=== PATIENT | female | born 1955 | race Caucasian/White ===

== ENCOUNTER 2018-08-19 10:37 | Inpatient (IN) | payer BC, SELFPAY ==
[2018-08-19] MEDS: Ondansetron 4 MG/2 ML SDV IVPUSH PRN (11:32)
[2018-08-19] MEDS: Sodium Chloride 0.9% 1,000 ML IV SCH ×2 (11:44→20:06)
[2018-08-19 11:45] LABS: CHLORIDE,CL 106 mEq/L (98-106); SODIUM,NA 143 mEq/L (136-145)
[2018-08-19] MEDS: Enoxaparin 40 MG/0.4 ML Syringe SUBCUT SCH (12:53)
[2018-08-19] MEDS ORDERED: Iopamidol 612 MG/ML 100 ML Bottle IVPUSH ONE (13:37)
--- NOTE | 2018-08-19 17:17 | EDM.PDOC ---
ED HPI GENERAL MEDICAL PROBLEM - General Chief Complaint: General Stated Complaint: nausea, sweating Time Seen by Provider: 08/19/18 11:03 Source of Information: Reports: Patient, Family History Limitations: Reports: No Limitations - History of Present Illness INITIAL COMMENTS - FREE TEXT/NARRATIVE: Adriane is a 62 yo female who presents to the ER ambulatory with concerns of feeling of passing out, nausea, excessive sweating, fatigue and body aches. She states she hasn't been feeling well for the last month. Has been seen on multiple occasions in clinic with similar symptoms. She states today everything got so bad at home she couldn't take it anymore and broke down. She does admit to a lot of stress. 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 She doesn't feel as if things are any worse in regards to her stress. She admits to Ashlyn Guan at the end of April. She admits she has noticed her arms and legs will go numb for short periods of time. She denies any trauma. States she does see a chiropractor for a stiff neck and that has seemed to help. She admits she has recently went off of her psychiatric medications as they had thought this was possibly causing her excessive sweating. She admits the excessive sweating has been ongoing for months. Admits she has been nauseated for over a year and does get some left upper quadrant abdominal pain. Family is present today and stating she can't continue like this and we need to get to the bottom of it. - Related Data Allergies Allergy/AdvReac Type Severity Reaction Status Date / Time nitrofurantoin Allergy Stomach Verified 08/19/18 10:38 [From Macrobid] Ache nitrofurantoin Allergy Stomach Verified 08/19/18 10:38 macrocrystalline Ache [From Macrobid] oxycodone [Oxycodone] Allergy Cannot Verified 08/19/18 10:38 Remember sulfamethoxazole Allergy Diarrhea Verified 08/19/18 10:38 [From Septra] trimethoprim [From Septra] Allergy Diarrhea Verified 08/19/18 10:38 Home Meds: Home Meds . [No Known Home Meds] 08/19/18 [History] Past Medical History Musculoskeletal History: Reports: Back Pain, Chronic - Past Surgical History GI Surgical History: Reports: Colonoscopy Neurological Surgical History: Reports: Other (See Below) Other Neurological Surgeries/Procedures: neuro stimulator Oncologic Surgical History: Reports: Lumpectomy Social & Family History - Family History Family Medical History: Noncontributory - Tobacco Use Smoking Status *Q: Current Some Day Smoker Years of Tobacco use: 40 Packs/Tins Daily: 0 - Caffeine Use Caffeine Use: Reports: Coffee ED ROS GENERAL - Review of Systems Review Of Systems: See Below Constitutional: Reports: Chills, Fatigue, Weight Loss (5lbs this week). Denies : Fever HEENT: Reports: No Symptoms Respiratory: Reports: No Symptoms Cardiovascular: Reports: Lightheadedness, Palpitations. Denies: Chest Pain GI/Abdominal: Reports: Abdominal Pain, Diarrhea, Nausea. Denies: Bloody Stool, Vomiting : Reports: No Symptoms Musculoskeletal: Reports: Neck Pain, Muscle Pain Neurological: Reports: Dizziness, Headache, Numbness, Paresthesia. Denies: Seizure, Syncope Psychiatric: Reports: Anxiety ED EXAM, GENERAL - Physical Exam Exam: See Below Exam Limited By: No Limitations General Appearance: Alert, No Apparent Distress Eye Exam: Bilateral Eye: EOMI, PERRL Ears: Normal External Exam, Normal Canal, Hearing Grossly Normal, Normal TMs Nose: Normal Inspection, No Blood Throat/Mouth: Normal Inspection, Normal Lips, Normal Teeth, Normal Gums, Normal Oropharynx, Normal Voice, No Airway Compromise Head: Atraumatic, Normocephalic Neck: Normal Inspection, Supple, Non-Tender, Full Range of Motion Respiratory/Chest: No Respiratory Distress, Lungs Clear, Normal Breath Sounds, No Accessory Muscle Use, Chest Non-Tender Cardiovascular: Normal Peripheral Pulses, Regular Rate, Rhythm, No Edema, No Murmur GI/Abdominal: Normal Bowel Sounds, Soft, Tender (LUQ). No: Rigid, Rebound, Hepatomegaly, Splenomegaly Extremities: Normal Inspection, Normal Range of Motion, Normal Capillary Refill Neurological: Alert, Oriented, Normal Cognition, No Motor/Sensory Deficits Psychiatric: Normal Affect, Normal Mood Skin Exam: Warm, Dry, Intact, Normal Color, No Rash EKG INTERPRETATION EKG Date: 08/19/18 Rhythm: NSR [place]: Normal Comparison: NA - No Prior EKG Course - Vital Signs Last Recorded V/S: Last Vital Signs Temp 97.9 F 08/19/18 15:57 Pulse 59 L 08/19/18 15:57 Resp 20 08/19/18 15:57 BP 126/62 08/19/18 15:57 Pulse Ox 99 08/19/18 15:57 - Orders/Labs/Meds Orders: Active Orders 24 hr Category Date Time Status Patient Status [ADT] Routine ADT 08/19/18 12:03 Active Oxygen Therapy [RC] .PRN Care 08/19/18 12:03 Active Up ad Yany [RC] .PRN Care 08/19/18 12:03 Active Vital Signs [RC] 0400,0800,1200,1600,2000,0000 Care 08/19/18 12:03 Active Regular Diet [DIET] Diet 08/19/18 Lunch Active Abdomen Pelvis w Cont [CT] Stat Exams 08/19/18 12:03 Taken Head wo Cont [CT] Stat Exams 08/19/18 11:11 Taken Acetaminophen [Tylenol] Med 08/19/18 12:03 Active 650 mg PO Q4H PRN Enoxaparin [Lovenox] Med 08/19/18 12:00 Active 40 mg SUBCUT Q24H Ondansetron [Zofran] Med 08/19/18 11:13 Active 4 mg IVPUSH Q6H PRN Sodium Chloride 0.9% [Normal Saline] 1,000 ml Med 08/19/18 11:15 Active IV ASDIRECTED Resuscitation Status Routine Resus Stat 08/19/18 11:55 Ordered Medication Orders Acetaminophen (Tylenol) 650 mg PO Q4H PRN PRN Reason: Pain (Mild 1-3)/fever Enoxaparin Sodium (Lovenox) 40 mg SUBCUT Q24H [facility] Last Admin: 08/19/18 12:53 Dose: Not Given Sodium Chloride (Normal Saline) 1,000 mls @ 125 mls/hr IV ASDIRECTED [facility] Last Infusion: 08/19/18 11:52 Dose: 125 mls/hr Admin: 08/19/18 11:44 Dose: 200 mls/hr Ondansetron HCl (Zofran) 4 mg IVPUSH Q6H PRN PRN Reason: Nausea Last Admin: 08/19/18 11:32 Dose: 4 mg Labs: Laboratory Tests 08/19/18 08/19/18 08/19/18 Range/Units 11:11 11:11 11:22 WBC 6.7 (5.0-10.0) 10^3/uL RBC 4.84 (4.00-5.50) 10^6/uL Hgb 13.9 (12.0-16.0) g/dL Hct 41.7 (37.0-47.0) % MCV 86.2 (82.0-94.0) fL MCH 28.7 (27.0-32.0) pg MCHC 33.3 (33.0-38.0) g/dL RDW Coeff of Ruth 12.9 (11.0-15.0) % Plt Count 236 (150-400) 10^3/uL Neut % (Auto) 58.2 (35-85) % Lymph % (Auto) 30.4 (10-55) % [place] % (Auto) 9.1 (0-16) % Eos % (Auto) 1.9 (0-5) % Baso % (Auto) 0.4 (0-3) % Neut # (Auto) 3.90 (1.80-7.00) 10^3/uL Lymph # (Auto) 2.04 (1.00-4.80) 10^3/uL [place] # (Auto) 0.61 (0.00-0.80) 10^3/uL Eos # (Auto) 0.13 (0.00-0.45) 10^3/uL Baso # (Auto) 0.03 10^3/uL ESR 19 (0-20) mm/hr Sodium (136-145) mEq/L Potassium (3.5-5.0) mEq/L Chloride (98-106) mEq/L Carbon Dioxide (21-32) mmol/L BUN (7-18) mg/dL Creatinine (0.6-1.0) mg/dL Est Cr Clr Drug Dosing mL/min Estimated GFR (MDRD) (>=60) mL/min Glucose (75-99) mg/dL Calcium (8.4-10.1) mg/dL Magnesium (1.8-2.4) mg/dL Total Bilirubin (0.0-1.0) mg/dL AST (15-37) U/L ALT (12-78) U/L Alkaline Phosphatase (46-116) U/L C-Reactive Protein (0.2-0.8) mg/dL Total Protein (6.4-8.2) g/dL Albumin (3.4-5.0) g/dL TSH, Ultra Sensitive (0.36-5.60) uIU/mL Urine Color Yellow (YELLOW) Urine Appearance Clear (CLEAR) Urine pH 6.5 (4.5-8.0) Ur Specific [place] 1.010 (1.003-1.020) Urine Protein Negative (NEGATIVE) mg/dL Urine Glucose (UA) Negative (NEGATIVE) mg/dL Urine Ketones Negative (NEGATIVE) mg/dL Urine Occult Blood Trace-intact H (NEGATIVE) Urine Nitrite Negative (NEGATIVE) Urine Bilirubin Negative (NEGATIVE) Urine Urobilinogen 0.2 (0.2-1.0) EU/dL Ur Leukocyte Esterase Trace H (NEGATIVE) Urine RBC Not seen (0-5) /HPF Urine WBC Not seen (0-5) /HPF Ur Squamous Epith Cells Occasional H (NOT SEEN) /HPF Urine Opiates Screen Negative (NEGATIVE) Ur Oxycodone Screen Negative (NEGATIVE) Urine Methadone Screen Negative (NEGATIVE) Ur Barbiturates Screen Negative (NEGATIVE) U Tricyclic Antidepress Negative (NEGATIVE) Ur Phencyclidine Scrn Negative (NEGATIVE) Ur Amphetamine Screen Negative (NEGATIVE) U Methamphetamines Scrn Negative (NEGATIVE) Urine MDMA Screen Negative (NEGATIVE) U Benzodiazepines Scrn Negative (NEGATIVE) Urine Cocaine Screen Negative (NEGATIVE) U Marijuana (THC) Screen Negative (NEGATIVE) 08/19/18 Range/Units 11:22 WBC (5.0-10.0) 10^3/uL RBC (4.00-5.50) 10^6/uL Hgb (12.0-16.0) g/dL Hct (37.0-47.0) % MCV (82.0-94.0) fL MCH (27.0-32.0) pg MCHC (33.0-38.0) g/dL RDW Coeff of Ruth (11.0-15.0) % Plt Count (150-400) 10^3/uL Neut % (Auto) (35-85) % Lymph % (Auto) (10-55) % [place] % (Auto) (0-16) % Eos % (Auto) (0-5) % Baso % (Auto) (0-3) % Neut # (Auto) (1.80-7.00) 10^3/uL Lymph # (Auto) (1.00-4.80) 10^3/uL [place] # (Auto) (0.00-0.80) 10^3/uL Eos # (Auto) (0.00-0.45) 10^3/uL Baso # (Auto) 10^3/uL ESR (0-20) mm/hr Sodium 143 (136-145) mEq/L Potassium 4.1 (3.5-5.0) mEq/L Chloride 106 (98-106) mEq/L Carbon Dioxide 30 (21-32) mmol/L BUN 11 (7-18) mg/dL Creatinine 0.7 (0.6-1.0) mg/dL Est Cr Clr Drug Dosing 86.67 mL/min Estimated GFR (MDRD) > 60 (>=60) mL/min Glucose 75 (75-99) mg/dL Calcium 9.4 (8.4-10.1) mg/dL Magnesium 2.0 (1.8-2.4) mg/dL Total Bilirubin 0.4 (0.0-1.0) mg/dL AST 16 (15-37) U/L ALT 27 (12-78) U/L Alkaline Phosphatase 93 (46-116) U/L C-Reactive Protein 0.3 (0.2-0.8) mg/dL Total Protein 7.4 (6.4-8.2) g/dL Albumin 3.8 (3.4-5.0) g/dL TSH, Ultra Sensitive 2.63 (0.36-5.60) uIU/mL Urine Color (YELLOW) Urine Appearance (CLEAR) Urine pH (4.5-8.0) Ur Specific [place] (1.003-1.020) Urine Protein (NEGATIVE) mg/dL Urine Glucose (UA) (NEGATIVE) mg/dL Urine Ketones (NEGATIVE) mg/dL Urine Occult Blood (NEGATIVE) Urine Nitrite (NEGATIVE) Urine Bilirubin (NEGATIVE) Urine Urobilinogen (0.2-1.0) EU/dL Ur Leukocyte Esterase (NEGATIVE) Urine RBC (0-5) /HPF Urine WBC (0-5) /HPF Ur Squamous Epith Cells (NOT SEEN) /HPF Urine Opiates Screen (NEGATIVE) Ur Oxycodone Screen (NEGATIVE) Urine Methadone Screen (NEGATIVE) Ur Barbiturates Screen (NEGATIVE) U Tricyclic Antidepress (NEGATIVE) Ur Phencyclidine Scrn (NEGATIVE) Ur Amphetamine Screen (NEGATIVE) U Methamphetamines Scrn (NEGATIVE) Urine MDMA Screen (NEGATIVE) U Benzodiazepines Scrn (NEGATIVE) Urine Cocaine Screen (NEGATIVE) U Marijuana (THC) Screen (NEGATIVE) Meds: Medications Generic Name Dose Route Start Last Admin Trade Name Freq PRN Reason Stop Dose Admin Acetaminophen 650 mg 08/19/18 12:03 Tylenol PO Q4H PRN Pain (Mild 1-3)/fever Enoxaparin Sodium 40 mg 08/19/18 12:00 08/19/18 12:53 Lovenox SUBCUT Not Given Q24H [facility] Sodium Chloride 1,000 mls @ 125 mls/hr 08/19/18 11:15 08/19/18 11:52 Normal Saline IV 125 mls/hr ASDIRECTED [facility] Infusion Ondansetron HCl 4 mg 08/19/18 11:13 08/19/18 11:32 Zofran IVPUSH 4 mg Q6H PRN Administration Nausea Discontinued Medications Generic Name Dose Route Start Last Admin Trade Name Freq PRN Reason Stop Dose Admin Iopamidol 100 ml 08/19/18 13:37 08/19/18 14:18 Isovue-300 (61%) IVPUSH 08/19/18 13:38 100 ml ONETIME ONE Administration Departure - Departure Time of Disposition: 12:00 Disposition: Refer to Observation Clinical Impression: Nausea, Intermittent paresthesia of hand and foot, Lightheadedness Abdominal pain Qualifiers: Abdominal location: left upper quadrant Qualified Code(s): R10.12 - Left upper quadrant pain Headache Qualifiers: Headache type: new daily persistent Qualified Code(s): G44.52 - New daily persistent headache (NDPH) - Discharge Information - Problem List & Annotations (1) Abdominal pain SNOMED Code(s): 05760382 Code(s): R10.9 - UNSPECIFIED ABDOMINAL PAIN Status: Acute Current Visit: Yes Qualifiers: Abdominal location: left upper quadrant Qualified Code(s): R10.12 - Left upper quadrant pain (2) Headache SNOMED Code(s): 67435695 Code(s): R51 - HEADACHE Status: Acute Current Visit: Yes Qualifiers: Headache type: new daily persistent Qualified Code(s): G44.52 - New daily persistent headache (NDPH) (3) Intermittent paresthesia of hand and foot SNOMED Code(s): 858916663, 392110115, 754813474 Code(s): R20.2 - PARESTHESIA OF SKIN Status: Acute Current Visit: Yes (4) Lightheadedness SNOMED Code(s): 662515598 Code(s): R42 - DIZZINESS AND GIDDINESS Status: Acute Current Visit: Yes (5) Nausea SNOMED Code(s): 974130555 Code(s): R11.0 - NAUSEA Status: Acute Current Visit: Yes - My Orders Last 24 Hours: My Active Orders 08/19/18 11:11 Head wo Cont [CT] Stat 08/19/18 11:13 Ondansetron [Zofran] 4 mg IVPUSH Q6H PRN 08/19/18 11:15 Sodium Chloride 0.9% [Normal Saline] 1,000 ml IV ASDIRECTED 08/19/18 11:55 Resuscitation Status Routine 08/19/18 12:00 Enoxaparin [Lovenox] 40 mg SUBCUT Q24H 08/19/18 12:03 Patient Status [ADT] Routine Oxygen Therapy [RC] .PRN Up ad Yany [RC] .PRN Vital Signs [RC] 0400,0800,1200,1600,2000,0000 Abdomen Pelvis w Cont [CT] Stat Acetaminophen [Tylenol] 650 mg PO Q4H PRN 08/19/18 Lunch Regular Diet [DIET] - Assessment/Plan Admission H&P: Please use this note as an admission H&P Last 24 Hours: My Active Orders 08/19/18 11:11 Head wo Cont [CT] Stat 08/19/18 11:13 Ondansetron [Zofran] 4 mg IVPUSH Q6H PRN 08/19/18 11:15 Sodium Chloride 0.9% [Normal Saline] 1,000 ml IV ASDIRECTED 08/19/18 11:55 Resuscitation Status Routine 08/19/18 12:00 Enoxaparin [Lovenox] 40 mg SUBCUT Q24H 08/19/18 12:03 Patient Status [ADT] Routine Oxygen Therapy [RC] .PRN Up ad Yany [RC] .PRN Vital Signs [RC] 0400,0800,1200,1600,2000,0000 Abdomen Pelvis w Cont [CT] Stat Acetaminophen [Tylenol] 650 mg PO Q4H PRN 08/19/18 Lunch Regular Diet [DIET] Plan: CT of the head was negative for any acute findings. Will get CT of the abdomen/ pelvis for chronic nausea and LUQ abdominal pain. Labs are all stable, no concerning findings. Will give IV fluids tonight. Adriane verbalized understanding and agreed with admission.
[2018-08-20] MEDS: Acetaminophen 325 MG Tab PO PRN (01:57)
[2018-08-20] MEDS: Sodium Chloride 0.9% 1,000 ML IV SCH ×3 (04:05→21:47)
[2018-08-20] MEDS: Ondansetron 4 MG/2 ML SDV IVPUSH PRN (08:43)
[2018-08-20] MEDS ORDERED: Iopamidol 612 MG/ML 100 ML Bottle IVPUSH ONE (09:38)
[2018-08-20] MEDS: Enoxaparin 40 MG/0.4 ML Syringe SUBCUT SCH (12:20)
--- NOTE | 2018-08-20 20:25 | PCM.PN ---
- General Info Date of Service: 08/20/18 Admission Dx/Problem (Free Text): Abdominal Pain Weakness Parasthesias Hyperhydrosis Functional Status: Reports: Pain Controlled, Tolerating Diet, Ambulating - Review of Systems General: Reports: Weakness, Fatigue, Malaise HEENT: Reports: No Symptoms Pulmonary: Denies: Shortness of Breath, Cough Cardiovascular: Reports: Lightheadedness. Denies: Chest Pain, Edema Gastrointestinal: Reports: Abdominal Pain, Nausea. Denies: Vomiting Genitourinary: Reports: No Symptoms Musculoskeletal: Reports: Joint Pain Skin: Reports: Other (sweating) Neurological: Reports: Headache, Paresthesia, Weakness Psychiatric: Reports: Anxiety - Patient Data Vitals - Most Recent: Last Vital Signs Temp 97.2 F 08/20/18 19:50 Pulse 56 L 08/20/18 19:50 Resp 16 08/20/18 19:50 BP 128/77 08/20/18 19:50 Pulse Ox 98 08/20/18 19:50 Weight - Most Recent: 170 lb 9.6 oz I&O - Last 24 Hours: Intake & Output 08/20/18 08/20/18 08/20/18 06:59 14:59 22:59 Intake Total 998 1000 Balance 998 1000 Med Orders - Current: Current Medications Acetaminophen (Tylenol) 650 mg PO Q4H PRN PRN Reason: Pain (Mild 1-3)/fever Last Admin: 08/20/18 01:57 Dose: 650 mg Enoxaparin Sodium (Lovenox) 40 mg SUBCUT Q24H [facility] Last Admin: 08/20/18 12:20 Dose: 40 mg Sodium Chloride (Normal Saline) 1,000 mls @ 125 mls/hr IV ASDIRECTED [facility] Last Admin: 08/20/18 12:20 Dose: 125 mls/hr Ondansetron HCl (Zofran) 4 mg IVPUSH Q6H PRN PRN Reason: Nausea Last Admin: 08/20/18 08:43 Dose: 4 mg Discontinued Medications Iopamidol (Isovue-300 (61%)) 100 ml IVPUSH ONETIME ONE Stop: 08/19/18 13:38 Last Admin: 08/19/18 14:18 Dose: 100 ml Iopamidol (Isovue-300 (61%)) 100 ml IVPUSH ONETIME ONE Stop: 08/20/18 09:39 Last Admin: 08/20/18 10:13 Dose: 100 ml - Exam General: Alert, Oriented HEENT: Mucous Membr. Moist/[place] Neck: Supple Lungs: Clear to Auscultation, Normal Respiratory Effort Cardiovascular: Regular Rate, Regular Rhythm GI/Abdominal Exam: Normal Bowel Sounds, Soft, Non-Tender Extremities: Normal Inspection, No Pedal Edema Skin: Other (diaphoretic at times) Neurological: No New Focal Deficit - Problem List & Annotations (1) Hyperhidrosis SNOMED Code(s): 288127547 Code(s): R61 - GENERALIZED HYPERHIDROSIS Status: Chronic Priority: Medium Current Visit: Yes (2) Abdominal pain SNOMED Code(s): 05183547 Code(s): R10.9 - UNSPECIFIED ABDOMINAL PAIN Status: Acute Priority: High Current Visit: Yes Qualifiers: Abdominal location: left upper quadrant Qualified Code(s): R10.12 - Left upper quadrant pain (3) Headache SNOMED Code(s): 01584871 Code(s): R51 - HEADACHE Status: Acute Priority: Medium Current Visit: Yes Qualifiers: Headache type: new daily persistent Qualified Code(s): G44.52 - New daily persistent headache (NDPH) (4) Intermittent paresthesia of hand and foot SNOMED Code(s): 830644176, 003722556, 704383629 Code(s): R20.2 - PARESTHESIA OF SKIN Status: Acute Priority: High Current Visit: Yes (5) Lightheadedness SNOMED Code(s): 479677132 Code(s): R42 - DIZZINESS AND GIDDINESS Status: Acute Priority: High Current Visit: Yes (6) Nausea SNOMED Code(s): 173868171 Code(s): R11.0 - NAUSEA Status: Chronic Current Visit: Yes - Problem List Review Problem List Initiated/Reviewed/Updated: Yes - My Orders Last 24 Hours: My Active Orders 08/20/18 09:05 Chest w Cont [CT] Routine 08/20/18 09:06 Abdomen Ltd [US] Routine - Assessment Assessment:: Abdominal Pain Postprandial nausea/lightheadedness/sweating Parasthesias - Plan Plan:: Patient continues to feel lightheaded, nauseated and diaphoretic at times. Does feel it is worse after eating. No fevers. Vital signs are stable. Has been eating. She does break out in a sweat quite frequently. Had left upper quadrant pain yesterday, gone today. No RUQ pain. Has headaches yet. Labs done yesterday all normal. CT scan of abdomen and pelvis done yesterday, awaiting results. Will obtain RUQ ultrasound today. CT scan of chest due to sweating. MRI of the brain due to headache. Repeat labs in am and await results.
[2018-08-21] MEDS: Sodium Chloride 0.9% 1,000 ML IV SCH ×3 (05:22→19:57)
[2018-08-21] MEDS: Ondansetron 4 MG/2 ML SDV IVPUSH PRN (08:43)
[2018-08-21] MEDS: Enoxaparin 40 MG/0.4 ML Syringe SUBCUT SCH (12:30)
--- NOTE | 2018-08-21 16:04 | PCM.PN ---
- General Info Date of Service: 08/21/18 Admission Dx/Problem (Free Text): Abdominal Pain Weakness Parasthesias Hyperhydrosis Functional Status: Reports: Pain Controlled, Tolerating Diet, Ambulating - Review of Systems General: Reports: Weakness, Fatigue. Denies: Fever HEENT: Reports: Headaches. Denies: Rhinitis, Visual Changes Pulmonary: Denies: Shortness of Breath, Cough Cardiovascular: Reports: Lightheadedness. Denies: Chest Pain, Edema Gastrointestinal: Reports: Nausea. Denies: Abdominal Pain, Decreased Appetite, Vomiting Genitourinary: Reports: No Symptoms Musculoskeletal: Reports: Neck Pain Skin: Reports: No Symptoms Neurological: Reports: Dizziness, Headache, Paresthesia, Weakness - Patient Data Vitals - Most Recent: Last Vital Signs Temp 97.5 F 08/21/18 15:56 Pulse 63 08/21/18 15:56 Resp 20 08/21/18 15:56 BP 119/63 08/21/18 15:56 Pulse Ox 97 08/21/18 15:56 Weight - Most Recent: 170 lb 9.6 oz I&O - Last 24 Hours: Intake & Output 08/21/18 08/21/18 08/21/18 06:59 14:59 22:59 Intake Total 948 1000 Balance 948 1000 Med Orders - Current: Current Medications Acetaminophen (Tylenol) 650 mg PO Q4H PRN PRN Reason: Pain (Mild 1-3)/fever Last Admin: 08/20/18 01:57 Dose: 650 mg Enoxaparin Sodium (Lovenox) 40 mg SUBCUT Q24H [facility] Last Admin: 08/21/18 12:30 Dose: Not Given Sodium Chloride (Normal Saline) 1,000 mls @ 125 mls/hr IV ASDIRECTED [facility] Last Admin: 08/21/18 14:58 Dose: 125 mls/hr Ondansetron HCl (Zofran) 4 mg IVPUSH Q6H PRN PRN Reason: Nausea Last Admin: 08/21/18 08:43 Dose: 4 mg Discontinued Medications Iopamidol (Isovue-300 (61%)) 100 ml IVPUSH ONETIME ONE Stop: 08/19/18 13:38 Last Admin: 08/19/18 14:18 Dose: 100 ml Iopamidol (Isovue-300 (61%)) 100 ml IVPUSH ONETIME ONE Stop: 08/20/18 09:39 Last Admin: 08/20/18 10:13 Dose: 100 ml - Exam General: Alert, Oriented HEENT: Mucous Membr. Moist/[place] Neck: Supple Lungs: Clear to Auscultation, Normal Respiratory Effort Cardiovascular: Regular Rate, Regular Rhythm GI/Abdominal Exam: Normal Bowel Sounds, Soft, Non-Tender Extremities: Normal Inspection, No Pedal Edema Skin: Warm, Dry Neurological: No New Focal Deficit - Problem List & Annotations (1) Hyperhidrosis SNOMED Code(s): 456639127 Code(s): R61 - GENERALIZED HYPERHIDROSIS Status: Chronic Priority: High Current Visit: Yes (2) Abdominal pain SNOMED Code(s): 07936056 Code(s): R10.9 - UNSPECIFIED ABDOMINAL PAIN Status: Acute Priority: High Current Visit: Yes Qualifiers: Abdominal location: left upper quadrant Qualified Code(s): R10.12 - Left upper quadrant pain (3) Headache SNOMED Code(s): 24380566 Code(s): R51 - HEADACHE Status: Acute Priority: Medium Current Visit: Yes Qualifiers: Headache type: new daily persistent Qualified Code(s): G44.52 - New daily persistent headache (NDPH) (4) Intermittent paresthesia of hand and foot SNOMED Code(s): 499414677, 584275617, 353765958 Code(s): R20.2 - PARESTHESIA OF SKIN Status: Acute Priority: High Current Visit: Yes (5) Lightheadedness SNOMED Code(s): 164300576 Code(s): R42 - DIZZINESS AND GIDDINESS Status: Acute Priority: High Current Visit: Yes (6) Nausea SNOMED Code(s): 278283306 Code(s): R11.0 - NAUSEA Status: Chronic Current Visit: Yes - Problem List Review Problem List Initiated/Reviewed/Updated: Yes - My Orders Last 24 Hours: My Active Orders 08/21/18 09:11 Consult to Physician [CONS] Routine PT Evaluation and Treatment [CONS] Routine 08/21/18 09:14 Notify Provider Consults [RC] .PRN 08/21/18 09:20 MISC TEST Routine - Assessment Assessment:: Abdominal Pain Postprandial nausea/lightheadedness/sweating Parasthesias - Plan Plan:: Patient continues to feel lightheaded, nauseated and diaphoretic at times. Does feel it is worse after eating. No fevers. Vital signs are stable. Has been eating. She does break out in a sweat quite frequently. Had left upper quadrant pain yesterday, gone today. No RUQ pain. Has headaches yet. Labs done yesterday all normal. CT scan of abdomen and pelvis done yesterday, awaiting results. Will obtain RUQ ultrasound today. CT scan of chest due to sweating. MRI of the brain due to headache. Repeat labs in am and await results. 08-21-2018 Patient continues to have same complaints today of flushing, diaphoresis, dizziness with moving her head, and nausea. Is tolerating all of her meals but complains of nausea and sweating after she eats. Is ambulating without assistance but relates has to take slow cautious movements due to dizziness. Has had CT scans of chest, abdomen and pelvis as well as GB ultrasound and MRI of brain and neck with no acute changes or concerns. Transfer to acute. Will obtain 24 hour urine to rule out carcinoid tumor. Proceed with EGD in the am due to nausea. Possible discharge home after EGD.
[2018-08-21] MEDS: Acetaminophen 325 MG Tab PO PRN (18:42)
[2018-08-22 08:27] LABS: CHLORIDE,CL 110 mEq/L (98-106); SODIUM,NA 143 mEq/L (136-145)
[2018-08-22] MEDS ORDERED: Midazolam 1 MG/ML 2 ML SDV ONE (09:18)
[2018-08-22] MEDS ORDERED: Meperidine PF 25 MG/ML Syringe ONE (09:18)
[2018-08-22] MEDS ORDERED: Benzocaine 20% Oral Spray 59.2 ML Canister MUCMEM ONE (09:37)
[2018-08-22] MEDS ORDERED: Meperidine PF 25 MG/ML Syringe IV ONE (09:45)
[2018-08-22] MEDS ORDERED: Midazolam 1 MG/ML 2 ML SDV IV ONE (09:46)
[2018-08-22] MEDS: Enoxaparin 40 MG/0.4 ML Syringe SUBCUT SCH (11:06)
[2018-08-22 12:40] VITALS: BP 123/72
--- NOTE | 2018-08-22 13:05 | PCM.DCSUM1 ---
Discharge Summary - Hospital Course Free Text/Narrative:: Patient presented due to lightheadedness, nausea, increased sweating and left upper quadrant pain. She has been experiencing more symptoms over the last 4 weeks. She states "just can't deal with it anymore". Does get dizzy at times where the room will spin. She has had ongoing sweating for about a year now. Had thought it was related to her Effexor so stopped that but did not see improvement. Does note she still sweats and has increased anxiety. Left upper quadrant pain was new. Had labs done in ER, all negative. CT scan of head was done due to headache and was negative. Admitted for IV fluids, nausea meds and further work up. Diagnosis: Stroke: No Modified [place] Scale: No Symptoms at All Modified Nate Scale Score: 0 - Discharge Data Discharge Date: 08/22/18 Discharge Disposition: Home, Self-Care 01 Preliminary Cause of *Q: Multi System Organ Failure Condition: Fair - Discharge Diagnosis/Problem(s) (1) Hyperhidrosis SNOMED Code(s): 173824362 ICD Code: R61 - GENERALIZED HYPERHIDROSIS Status: Chronic Priority: High Current Visit: Yes (2) Abdominal pain SNOMED Code(s): 15794620 ICD Code: R10.9 - UNSPECIFIED ABDOMINAL PAIN Status: Acute Priority: High Current Visit: Yes Qualifiers: Abdominal location: left upper quadrant Qualified Code(s): R10.12 - Left upper quadrant pain (3) Headache SNOMED Code(s): 45967920 ICD Code: R51 - HEADACHE Status: Acute Priority: Medium Current Visit: Yes Qualifiers: Headache type: new daily persistent Qualified Code(s): G44.52 - New daily persistent headache (NDPH) (4) Intermittent paresthesia of hand and foot SNOMED Code(s): 004828710, 520987896, 511610595 ICD Code: R20.2 - PARESTHESIA OF SKIN Status: Acute Priority: High Current Visit: Yes (5) Lightheadedness SNOMED Code(s): 681395317 ICD Code: R42 - DIZZINESS AND GIDDINESS Status: Acute Priority: High Current Visit: Yes (6) Nausea SNOMED Code(s): 657199236 ICD Code: R11.0 - NAUSEA Status: Chronic Current Visit: Yes - Patient Summary/Data Operative Procedure(s) Performed: EGD Complications: none Consults: Consultations 08/21/18 09:11 Consult to Physician [CONS] Routine PT Evaluation and Treatment [CONS] Routine Hospital Course: Patient has continued to have nausea and sweating throughout stay. Does note reflux at times. Labs have remained normal. Had CT scan of abdomen and pelvis , gallbladder ultrasound which was negative. CT scan of chest negative. MRI of neck and brain were done with no acute changes. Have been collecting 24 hour urine to rule out carcinoid tumor. Dr. Valenzuela did proceed with EGD today which did show moderate hiatal hernia, gastritis, and healing ulcer. OSKAR testing was done. Will discharge home on Protonix and await results of 24 hour urine collection. - Patient Instructions Diet: Usual Diet as Tolerated Activity: As Tolerated - Discharge Plan *PRESCRIPTION DRUG MONITORING PROGRAM REVIEWED*: No *COPY OF PRESCRIPTION DRUG MONITORING REPORT IN PATIENT [place]: No Prescriptions/Med Rec: Ondansetron [Zofran] 4 mg PO Q6H #30 tab Pantoprazole Sodium [Protonix] 40 mg PO BID #60 tablet. Home Medications: Home Meds Ondansetron [Zofran] 4 mg PO Q6H #30 tab 08/22/18 [Rx] Pantoprazole Sodium [Protonix] 40 mg PO BID #60 tablet. 08/22/18 [Rx] Forms: ED Department Discharge Referrals: Radha Weber PA [ED Midlevel Provider] - (Follow up in 2 weeks with Eufemia ) - Discharge Summary/Plan Comment DC Time >30 min.: No Discharge Summary/Plan Comment: Discharge home Start Protonix 40 mg BID for 2 weeks, daily for a month Will notify her of results of 24 hour urine - General Info Date of Service: 08/22/18 Admission Dx/Problem (Free Text: Abdominal Pain Weakness Parasthesias Hyperhydrosis Functional Status: Reports: Pain Controlled, Tolerating Diet, Ambulating - Review of Systems General: Reports: Weakness, Malaise. Denies: Fever HEENT: Reports: No Symptoms Pulmonary: Denies: Shortness of Breath, Cough Cardiovascular: Denies: Chest Pain, Edema, Lightheadedness Gastrointestinal: Reports: Nausea. Denies: Abdominal Pain, Vomiting Genitourinary: Reports: No Symptoms Musculoskeletal: Reports: No Symptoms Skin: Reports: No Symptoms Neurological: Reports: Headache, Weakness - Patient Data Vitals - Most Recent: Last Vital Signs Temp 97.5 F 08/22/18 12:00 Pulse 54 L 08/22/18 12:00 Resp 18 08/22/18 12:00 BP 123/72 08/22/18 12:00 Pulse Ox 100 08/22/18 12:00 Weight - Most Recent: 170 lb 9.6 oz I&O - Last 24 hours: Intake & Output 08/21/18 08/22/18 08/22/18 22:59 06:59 14:59 Intake Total 623 Balance 623 Lab Results - Last 24 hrs: Laboratory Results - last 24 hr 08/22/18 08/22/18 Range/Units 06:55 06:55 WBC 5.3 (5.0-10.0) 10^3/uL RBC 4.33 (4.00-5.50) 10^6/uL Hgb 12.4 (12.0-16.0) g/dL Hct 37.5 (37.0-47.0) % MCV 86.6 (82.0-94.0) fL MCH 28.6 (27.0-32.0) pg MCHC 33.1 (33.0-38.0) g/dL RDW Coeff of Ruth 12.8 (11.0-15.0) % Plt Count 205 (150-400) 10^3/uL Neut % (Auto) 55.2 (35-85) % Lymph % (Auto) 31.3 (10-55) % [place] % (Auto) 10.1 (0-16) % Eos % (Auto) 3.0 (0-5) % Baso % (Auto) 0.4 (0-3) % Neut # (Auto) 2.95 (1.80-7.00) 10^3/uL Lymph # (Auto) 1.67 (1.00-4.80) 10^3/uL [place] # (Auto) 0.54 (0.00-0.80) 10^3/uL Eos # (Auto) 0.16 (0.00-0.45) 10^3/uL Baso # (Auto) 0.02 10^3/uL Sodium 143 (136-145) mEq/L Potassium 4.0 (3.5-5.0) mEq/L Chloride 110 H (98-106) mEq/L Carbon Dioxide 25 (21-32) mmol/L BUN 9 (7-18) mg/dL Creatinine 0.7 (0.6-1.0) mg/dL Est Cr Clr Drug Dosing 85.14 mL/min Estimated GFR (MDRD) > 60 (>=60) mL/min Glucose 94 D (75-99) mg/dL Calcium 8.7 (8.4-10.1) mg/dL C-Reactive Protein < 0.2 L (0.2-0.8) mg/dL Med Orders - Current: Current Medications Acetaminophen (Tylenol) 650 mg PO Q4H PRN PRN Reason: Pain (Mild 1-3)/fever Last Admin: 08/21/18 18:42 Dose: 650 mg Enoxaparin Sodium (Lovenox) 40 mg SUBCUT Q24H [facility] Last Admin: 08/22/18 11:06 Dose: Not Given Sodium Chloride (Normal Saline) 1,000 mls @ 125 mls/hr IV ASDIRECTED [facility] Last Admin: 08/21/18 19:57 Dose: 125 mls/hr Ondansetron HCl (Zofran) 4 mg IVPUSH Q6H PRN PRN Reason: Nausea Last Admin: 08/21/18 08:43 Dose: 4 mg Discontinued Medications Benzocaine (Hurricaine 20% [place]) 5 ml MUCMEM .STK-MED ONE Stop: 08/22/18 09:38 Last Admin: 08/22/18 09:37 Dose: 5 ml Iopamidol (Isovue-300 (61%)) 100 ml IVPUSH ONETIME ONE Stop: 08/19/18 13:38 Last Admin: 08/19/18 14:18 Dose: 100 ml Iopamidol (Isovue-300 (61%)) 100 ml IVPUSH ONETIME ONE Stop: 08/20/18 09:39 Last Admin: 08/20/18 10:13 Dose: 100 ml Meperidine HCl (Demerol) Confirm Administered Dose 25 mg .ROUTE .STK-MED ONE Stop: 08/22/18 09:19 Last Admin: 08/22/18 10:41 Dose: Not Given Meperidine HCl (Demerol) 25 mg IV .STK-MED ONE Stop: 08/22/18 09:46 Last Admin: 08/22/18 09:45 Dose: 25 mg Midazolam HCl (Versed 1 Mg/Ml) Confirm Administered Dose 4 mg .ROUTE .STK-MED ONE Stop: 08/22/18 09:19 Last Admin: 08/22/18 10:41 Dose: Not Given Midazolam HCl (Versed 1 Mg/Ml) 4 mg IV .STK-MED ONE Stop: 08/22/18 09:47 Last Admin: 08/22/18 09:46 Dose: 4 mg - Exam General: Reports: Alert, Oriented HEENT: Reports: Mucous Membr. Moist/[place] Neck: Reports: Supple Lungs: Reports: Clear to Auscultation, Normal Respiratory Effort Cardiovascular: Reports: Regular Rate, Regular Rhythm GI/Abdominal Exam: Normal Bowel Sounds, Soft, Non-Tender Extremities: Normal Inspection, No Pedal Edema Skin: Reports: Warm, Dry Neurological: Reports: No New Focal Deficit
--- NOTE | 2018-08-22 15:07 | OR ---
DATE OF OPERATION: 08/22/2018 PREOPERATIVE DIAGNOSIS: PERSISTENT NAUSEA, DYSPEPSIA. POSTOPERATIVE DIAGNOSIS: PERSISTENT NAUSEA, DYSPEPSIA. SURGEON: Devon Valenzuela MD PROCEDURE: ESOPHAGOGASTRODUODENOSCOPY WITH BIOPSIES X4, OSKAR. ANESTHESIA: Conscious sedation. COMPLICATIONS: None. SPECIMEN: 1. Antral biopsy x2. 2. Fundal biopsy x1. 3. EG junction biopsy x1. 4. CLOtest. FINDINGS: 1. Full-length EGD. 2. Minimal duodenitis. 3. Chronic appearing antral gastritis with 1 focal erosion. 4. Moderate hiatal hernia with minimal esophagitis, Z-line. RECOMMENDATIONS: Appropriate medical care. INDICATIONS: The patient having persistent nausea, some dyspepsia, and symptoms of GERD. We elected to proceed with EGD. DESCRIPTION OF PROCEDURE: The patient was prepped and draped, placed in the left lateral decubitus position. A lubricated Olympus gastroscope was inserted over a bit and advanced to cricopharyngeus area and easily intubated into the esophagus. The esophageal lining was benign in its entire course. The Z-line was crisp at 37 cm. A moderate sized hiatal hernia present without any spontaneous reflux seen. The Z-line itself had some focal inflammation, but nothing extending up into the distal esophagus. A biopsy was taken. Scope was advanced into the stomach through the pylorus and into the second portion of the duodenum. At the distal duodenal bulb and in the immediate second portion of duodenum, there was some very minimal inflammation present. No ulcerations. The scope was brought back into the stomach and retroflexed. The upper fundus and cardia were completely benign other than the hernia visualized in the mid portion of the fundus and the antrum. The patient had some chronic gastritis changes. There was 1 focal small erosion without any acute inflammation. Two biopsies in the antrum including the area of the erosion were taken along with the CLOtest. The fundus was biopsied as well. Air was then suctioned from the stomach. The scope was removed without complication. DINORAH/RICHARD /[id number]
== END 2018-08-22 13:20 | disposition home or self-care (01) | DRG 241 ==
LOC: CC.ED 10:37 → CC.MS 11:57 → OBSVTOIN 08-21 12:03
PROVIDERS: ADMIT Physician Assistant Medical; ATTEND Family Medicine
PROC: 0DB48ZX Excision of Esophagogastric Junction, Via Natural or Artificial Opening Endoscopic, Diagnostic (ICD-10-PCS; principal; 2018-08-22)
PROC: 0DB68ZX Excision of Stomach, Via Natural or Artificial Opening Endoscopic, Diagnostic (ICD-10-PCS; 2018-08-22)
DX: K29.50 Unspecified chronic gastritis without bleeding (principal); R42 Dizziness and giddiness; R11.0 Nausea; R10.13 Epigastric pain; K44.9 Diaphragmatic hernia without obstruction or gangrene; K29.80 Duodenitis without bleeding; K25.9 Gastric ulcer, unspecified as acute or chronic, without hemorrhage or perforation; R61 Generalized hyperhidrosis; G89.29 Other chronic pain; M54.9 Dorsalgia, unspecified; R10.12 Left upper quadrant pain; R51 Headache; R20.2 Paresthesia of skin; R53.1 Weakness; F17.200 Nicotine dependence, unspecified, uncomplicated; F43.9 Reaction to severe stress, unspecified; Z88.2 Allergy status to sulfonamides; Z88.8 Allergy status to other drugs, medicaments and biological substances
CPT/HCPCS: 36415; 70450; 70551; 71260; 72141; 74177; 76705; 80048; 80053; 80305-QW; 81001; 83497; 83735; 84443; 85025; 85651; 86140; 87081; 90686; 93005; 96361; 96372; 96374; 96375; 96376; 97750-GP; 99285; A9270-GY; G0008; G0378; J1650; J2175; J2250; J2405; J7030; Q9967

== ENCOUNTER → 2021-05-06 | Day surgery (SDC) | payer OTHER ==
[~2021-05-06] MED LIST: Ketamine 200 MG/20 ML MDV ONE; Lidocaine 2% 5 ML SDV ONE; Propofol 200 MG/20 ML SDV ONE; fentaNYL 100 MCG/2 ML SDV ONE
[2021-05-06] MEDS: Lactated Ringers 1,000 ML IV SCH (09:00)
[2021-05-06 10:43] VITALS: BP 147/80; PULSE 53
--- NOTE | 2021-05-06 12:45 | OR ---
DATE OF OPERATION: 05/06/2021 PREOPERATIVE DIAGNOSIS: PERSISTENT GASTROESOPHAGEAL REFLUX DISEASE. POSTOPERATIVE DIAGNOSIS: PERSISTENT GASTROESOPHAGEAL REFLUX DISEASE. SURGEON: Devon Valenzuela MD PROCEDURE: DIAGNOSTIC ESOPHAGOGASTRODUODENOSCOPY WITH BIOPSIES X1, OSKAR. ANESTHESIA: MAC. COMPLICATIONS: None. SPECIMEN: 1. Antral OSKAR. 2. Distal esophageal biopsy x1. FINDINGS: 1. Full-length diagnostic EGD. 2. Spontaneous GERD without significant esophagitis, stricturing, or ulceration. 3. Possible small short-segment Reyes's. RECOMMENDATIONS: Followup pending path report. Recommend ongoing aggressive PPI therapy. INDICATIONS: The patient has been having some ongoing issues with reflux, unresponsive at this time to aggressive medical therapy. Beryl Boone has sent the patient for a diagnostic EGD. DESCRIPTION OF PROCEDURE: The patient was prepped and draped, placed in the left lateral decubitus position with head of the bed elevated. A lubricated Olympus gastroscope was inserted over a bit, advanced to the cricopharyngeus area, and easily intubated into the esophagus. Esophageal lining appeared benign its entire course. The Z-line was crisp, around 38.5 cm. There may be a very small and early hiatal hernia present, but minimal. There is no distal esophagitis, stricturing, or ulceration present. There may be one small short- segment Reyes's area, and I did do a biopsy of that. The scope was advanced into the stomach, through the pylorus, and into the second portion of the duodenum. This and the duodenal bulb were unremarkable. The scope was brought back into the stomach and retroflexed. The upper fundus and cardia were completely benign. Upon straightening, the rest of the fundus and antrum were as well benign. There were no signs of any polyps, masses, ulceration, or peptic ulcer disease. Antral CLOtest was accomplished. Air was then suctioned from the stomach and the scope was removed without complication. DINORAH/RICHARD /[id number]
== END ==
LOC: CC.SDS 10:07
PROVIDERS: ATTEND Family Medicine
DX: K21.9 Gastro-esophageal reflux disease without esophagitis (principal); E78.5 Hyperlipidemia, unspecified; F17.210 Nicotine dependence, cigarettes, uncomplicated; E55.9 Vitamin D deficiency, unspecified; Z88.8 Allergy status to other drugs, medicaments and biological substances; Z88.5 Allergy status to narcotic agent; Z79.899 Other long term (current) drug therapy; Z98.890 Other specified postprocedural states
CPT/HCPCS: 00731; 87081; J2704; J3010; J7120

== ENCOUNTER 2024-08-22 09:31 | Day surgery (SDC) | payer MEDICARE ==
[2024-08-22] MEDS: Lactated Ringers 1,000 ML IV SCH (09:53)
[2024-08-22] MEDS ORDERED: Lidocaine 2% 20 ML MDV ONE (10:25)
[2024-08-22] MEDS ORDERED: Ketamine 200 MG/20 ML MDV ONE (10:25)
[2024-08-22] MEDS ORDERED: fentaNYL 50 MCG/ML SDV ONE (10:25)
[2024-08-22] MEDS ORDERED: Propofol 200 MG/20 ML SDV ONE ×2 (10:25)
[2024-08-22 11:53] VITALS: BP 132/69; PULSE 55
== END 2024-08-22 12:00 | disposition home or self-care (01) ==
LOC: CC.SDS 09:31
PROVIDERS: ATTEND Family Medicine
DX: Z12.11 Encounter for screening for malignant neoplasm of colon (principal); K31.89 Other diseases of stomach and duodenum; K21.9 Gastro-esophageal reflux disease without esophagitis; I10 Essential (primary) hypertension; F41.9 Anxiety disorder, unspecified; E78.5 Hyperlipidemia, unspecified; E66.9 Obesity, unspecified; Z79.899 Other long term (current) drug therapy; Z88.5 Allergy status to narcotic agent
CPT/HCPCS: 00813; 87081; 88305; J2704; J3010; J3490; J7120

== ENCOUNTER 2024-08-28 17:08 | Emergency (ER) | payer MEDICARE ==
[2024-08-28 17:44] LABS: BASOPHILS ABSOLUTE AUTO 0.02 10^3/uL (0.00-0.50); BASOPHILS PERCENT AUTO 0.2 % (0-1); EOSINOPHILS ABSOLUTE AUTO 0.21 10^3/uL (0.00-1.50); HEMATOCRIT 42.6 % (37.0-47.0); HEMOGLOBIN 13.7 g/dL (12.0-16.0); IMMATURE GRAN ABSOLUTE AUTO 0.01 10^3/uL (0.00-0.49); IMMATURE GRAN PERCENT AUTO 0.1 % (0.0-4.9); LYMPHOCYTES ABSOLUTE AUTO 0.91 10^3/uL (0.60-5.00); LYMPHOCYTES PERCENT AUTO 8.7 % (24-44); MEAN CORPUSCULAR HEMOGLOBIN 27.8 pg (27.0-32.0); MEAN CORPUSCULAR HGB CONC 32.2 g/dL (32.0-36.0); MEAN CORPUSCULAR VOLUME 86.6 fL (83.0-97.0); MONOCYTES ABSOLUTE AUTO 0.45 10^3/uL (0.00-1.50); MONOCYTES PERCENT AUTO 4.3 % (0-10); NEUTROPHILS ABSOLUTE AUTO 8.85 x10^3/uL (1.80-8.00); NEUTROPHILS PERCENT AUTO 84.7 % (41-71); PLATELET COUNT,PLT 280 10^3/uL (150-400); RED BLOOD CELL COUNT 4.92 x10^6/uL (4.00-5.50); WHITE BLOOD CELL COUNT,WBC 10.5 10^3/uL (4.0-11.0)
[2024-08-28 17:53] LABS: APPEARANCE,URINE CLEAR (CLEAR); BILIRUBIN,URINE NEGATIVE (NEGATIVE); COLOR,URINE YELLOW (YELLOW); GLUCOSE,URINE NEGATIVE (NEGATIVE); KETONES,URINE 15 mg/dL (NEGATIVE); LEUKOCYTE ESTERASE,URINE NEGATIVE (NEGATIVE); NITRITE,URINE NEGATIVE (NEGATIVE); OCCULT BLOOD,URINE TRACE-INTACT (NEGATIVE); PROTEIN,URINE NEGATIVE (NEGATIVE); UROBILINOGEN,URINE 0.2 EU/dL (0.2-1.0)
[2024-08-28 18:01] LABS: BACTERIA,URINE OCCASIONAL /HPF (NOT SEEN); EPITHELIAL CELLS,URINE FEW /HPF (NOT SEEN); WBC,URINE 0-5 /HPF (0-5)
[2024-08-28 18:07] LABS: ALANINE AMINOTRANSFERASE,ALT 31 U/L (12-78); ALBUMIN 4.6 g/dL (3.4-5.0); ALKALINE PHOSPHATASE 78 U/L (46-116); ASPARTATE AMNIOTRANSFERASE,AST 25 U/L (15-37); BILIRUBIN TOTAL 0.7 mg/dL (0.0-1.0); BLOOD UREA NITROGEN,BUN 10 mg/dL (7-18); C-REACTIVE PROTEIN 1.76 mg/dL (<=0.50); CALCIUM 9.5 mg/dL (8.4-10.1); CARBON DIOXIDE,CO2 26 mmol/L (21-32); CHLORIDE,CL 101 mEq/L (98-106); CREATININE 1.1 mg/dL (0.6-1.0); GLUCOSE RANDOM 104 mg/dL (75-99); POTASSIUM,K 3.8 mEq/L (3.5-5.0); PROTEIN TOTAL,TP 8.1 g/dL (6.4-8.2); SODIUM,NA 141 mEq/L (136-145)
[2024-08-28 18:09] LABS: ESTIMATED GFR 55 mL/min (>=60)
[2024-08-28 18:18] VITALS: BP 161/93; PULSE 92
[2024-08-28] MEDS: Ondansetron 4 MG Tab.DIS PO PRN (18:27)
== END 2024-08-28 18:50 | disposition home or self-care (01) ==
LOC: CC.ED 17:08
DX: R11.0 Nausea (principal); T36.8X5A Adverse effect of other systemic antibiotics, initial encounter; Z79.899 Other long term (current) drug therapy; Z88.1 Allergy status to other antibiotic agents; Z88.5 Allergy status to narcotic agent; Z88.2 Allergy status to sulfonamides
CPT/HCPCS: 36415; 71046; 80053; 81001; 83605; 85025; 86140; 87040; 87428-QW; 99285; A9270-GY

== ENCOUNTER 2024-09-11 07:58 | Day surgery (SDC) | payer MEDICARE ==
[2024-09-11] MEDS ORDERED: Sodium Chloride 0.9% 10 ML Syringe FLUSH PRN (08:15)
[2024-09-11] MEDS: Cyclopentolate 1% Opth Soln 2 ML Bottle EYERT SCH (08:52)
[2024-09-11] MEDS: Phenylephrine 2.5% Ophth Soln 2 ML Bot EYERT SCH (08:52)
[2024-09-11] MEDS: Tropicamide 1% Ophth Soln 3 ML Bottle EYERT SCH (08:53)
[2024-09-11] MEDS ORDERED: Midazolam 1 MG/ML 2 ML SDV ONE (09:10)
[2024-09-11] MEDS: Tetracaine HCl/PF 0.5% 4 ML Bottle EYERT SCH (09:20)
[2024-09-11] MEDS: MOXIFLOXACIN PF in BSS 1 MG/ML VIAL IO SCH (09:20)
[2024-09-11] MEDS: Povidone-Iodine 5% Sterile Ophth Soln 30 ML Bottle EYERT SCH (09:20)
[2024-09-11] MEDS: Lidocaine 1% PF 2 ML SDV INJECT SCH (09:20)
[2024-09-11] MEDS: Phenyleprhine/Ketorolac 4 ML Vial OP SCH (09:20)
[2024-09-11] MEDS: Brimonidine 0.2% Ophth Soln 5 ML Bottle EYERT ONE (09:20)
[2024-09-11 11:50] VITALS: BP 134/61; PULSE 56
== END 2024-09-11 10:17 | disposition home or self-care (01) ==
LOC: CC.SDS 07:58
PROVIDERS: ATTEND Ophthalmology
DX: H26.8 Other specified cataract (principal); K21.9 Gastro-esophageal reflux disease without esophagitis; E78.5 Hyperlipidemia, unspecified
CPT/HCPCS: 00142; A9270-GY; J1097; J2250; J3490; V2632

== ENCOUNTER 2024-11-17 07:41 | Day surgery (SDC) | payer MEDICARE ==
[~2024-11-17 07:41] MED LIST changes: -Ketamine 200 MG/20 ML MDV ONE; -Lidocaine 2% 5 ML SDV ONE; -Propofol 200 MG/20 ML SDV ONE; +Sodium Chloride 0.9% 10 ML Syringe FLUSH PRN; +acetaZOLAMIDE 500 MG Cap.ER PO SCH; -fentaNYL 100 MCG/2 ML SDV ONE
[2024-11-17] MEDS: Cyclopentolate 1% Opth Soln 2 ML Bottle EYELF SCH (08:46)
[2024-11-17] MEDS: Phenylephrine 2.5% Ophth Soln 2 ML Bot EYELF SCH (08:47)
[2024-11-17] MEDS: Tropicamide 1% Ophth Soln 3 ML Bottle EYELF SCH (08:48)
[2024-11-17] MEDS ORDERED: Midazolam 1 MG/ML 2 ML SDV ONE (09:05)
[2024-11-17] MEDS: MOXIFLOXACIN PF in BSS 1 MG/ML VIAL IO SCH (09:15)
[2024-11-17] MEDS: Lidocaine 1% PF 2 ML SDV INJECT SCH (09:15)
[2024-11-17] MEDS: Tetracaine HCl/PF 0.5% 4 ML Bottle EYELF SCH (09:15)
[2024-11-17] MEDS: Phenyleprhine/Ketorolac 4 ML Vial OP SCH (09:15)
[2024-11-17] MEDS: Povidone-Iodine 5% Sterile Ophth Soln 30 ML Bottle EYELF SCH (09:15)
[2024-11-17] MEDS: Brimonidine 0.2% Ophth Soln 5 ML Bottle EYELF SCH (09:25)
[2024-11-17 10:30] VITALS: BP 127/68; PULSE 55
== END 2024-11-17 10:15 | disposition home or self-care (01) ==
LOC: CC.SDS 07:41
PROVIDERS: ATTEND Ophthalmology
DX: H26.8 Other specified cataract (principal); F41.9 Anxiety disorder, unspecified; K21.9 Gastro-esophageal reflux disease without esophagitis; E78.5 Hyperlipidemia, unspecified; F32.A Depression, unspecified; Z79.899 Other long term (current) drug therapy; Z88.5 Allergy status to narcotic agent; Z88.8 Allergy status to other drugs, medicaments and biological substances
CPT/HCPCS: 00142; A9270-GY; J1097; J2250; J3490

== ENCOUNTER 2025-06-22 22:25 | Emergency (ER) | payer MEDICARE ==
[2025-06-22 22:45] VITALS: BP 150/85; PULSE 65
[2025-06-22] MEDS: Bacitracin Oint 1 GM U/D Packet TOP ONE (22:50)
[2025-06-22] MEDS: Acetaminophen/HYDROcodone 325-5 MG Tab PO ONE (22:50)
[2025-06-22] MEDS: Bacitracin Oint 1 GM U/D Packet ONE (22:52)
[2025-06-22] MEDS: Diphtheria,Pertussis(Acell),Tetanus Vaccine 0.5 ML Syringe IM ONE (23:24)
[2025-06-22] MEDS: Take Home: Acetaminophen/HYDROcodone 325-5 MG, 2 Tab Pack PO ONE (23:24)
== END 2025-06-22 23:35 | disposition home or self-care (01) ==
LOC: CC.ED 22:25
DX: S92.424A Nondisplaced fracture of distal phalanx of right great toe, initial encounter for closed fracture (principal); S91.202A Unspecified open wound of left great toe with damage to nail, initial encounter; Z23 Encounter for immunization; I10 Essential (primary) hypertension; Z88.2 Allergy status to sulfonamides; Z88.8 Allergy status to other drugs, medicaments and biological substances; Z79.899 Other long term (current) drug therapy; W22.8XXA Striking against or struck by other objects, initial encounter
CPT/HCPCS: 73660-T5; 90471; 90715; 99283-25; A9270-GY

== ENCOUNTER 2025-09-28 09:43 | Emergency (ER) | payer MEDICARE ==
[2025-09-28 10:09] VITALS: BP 168/81; PULSE 78
[2025-09-28] MEDS: Ketorolac 30 MG/ML SDV IM STA (10:26)
[2025-09-28] MEDS: methylPREDNISolone Sodium Succinate 40 MG/1 ML SDV IM ONE (10:28)
== END 2025-09-28 10:55 | disposition home or self-care (01) ==
LOC: CC.ED 09:43
DX: M54.42 Lumbago with sciatica, left side (principal); I10 Essential (primary) hypertension; Z88.8 Allergy status to other drugs, medicaments and biological substances; Z88.2 Allergy status to sulfonamides; Z88.5 Allergy status to narcotic agent; Z79.899 Other long term (current) drug therapy
CPT/HCPCS: 96372; 99283; 99284; J1885; J2919